=== PATIENT | male | born 1955 | race Caucasian/White ===

== ENCOUNTER 2021-07-04 13:28 | Outpatient (CLI) | payer MEDICARE | END 2021-07-04 13:29 | disposition home or self-care (01) | LOC: CSHCT 13:28 | PROVIDERS: ATTEND Urology | DX: R31.29 Other microscopic hematuria (principal); Z87.442 Personal history of urinary calculi; N28.1 Cyst of kidney, acquired; N28.9 Disorder of kidney and ureter, unspecified; K57.30 Diverticulosis of large intestine without perforation or abscess without bleeding; K44.9 Diaphragmatic hernia without obstruction or gangrene; M43.17 Spondylolisthesis, lumbosacral region; M47.819 Spondylosis without myelopathy or radiculopathy, site unspecified | CPT/HCPCS: 74178 ==

== ENCOUNTER 2022-01-20 14:48 | Outpatient (CLI) | payer MEDICARE | END 2022-01-20 14:49 | disposition home or self-care (01) | LOC: CSHRAD 14:48 | PROVIDERS: ATTEND Nurse Practitioner Family | DX: R05.9 Cough, unspecified (principal); R09.89 Other specified symptoms and signs involving the circulatory and respiratory systems | CPT/HCPCS: 71046 ==

== ENCOUNTER 2025-05-19 08:25 | Outpatient (CLI) | payer MEDICARE | END 2025-05-19 08:26 | disposition home or self-care (01) | LOC: CSHRAD 08:25 | PROVIDERS: ATTEND Family Medicine | DX: M41.9 Scoliosis, unspecified (principal); M43.9 Deforming dorsopathy, unspecified; M47.814 Spondylosis without myelopathy or radiculopathy, thoracic region | CPT/HCPCS: 72072 ==